=== PATIENT | female | born 2000 | race Caucasian/White ===

== ENCOUNTER 2024-01-30 07:20 | Day surgery (SDC) | payer OTHER, SELFPAY ==
[2024-01-30] VITALS (11 sets, daily range): BP systolic 77–129; BP diastolic 38–72; PULSE 80–120; RESP 16; TEMP 36.1–37.2; O2SAT 93–100
--- NOTE | 2024-01-30 07:30 | EX.ED.DYSGE1 ---
HPI History of Present Illness Chief Complaint: Abd Pain [facility] Medical History (Updated 01/30/24 @ 11:21 by Amanda GONZALEZ PA-C) Anxiety Home Medications ?Medication ?Instructions ?Recorded ?Last Taken ?Type alprazolam 0.5 mg tablet 0.5 mg PO BID 01/30/24 01/29/24 History venlafaxine 150 mg 150 mg PO DAILY 01/30/24 01/29/24 History capsule,extended release 24 hr Allergy/AdvReac Type Severity Reaction Status Date / Time No Known Allergies Allergy Verified 01/30/24 07:30 Social History Smoking Status: Never smoker EXAM Physical Exam Const Vital Signs: 01/30/24 07:26 01/30/24 09:25 01/30/24 11:15 Temperature 97.2 F L 97.4 F L Temperature Source Temporal Pulse Rate 96 98 102 H Respiratory Rate 16 16 16 Blood Pressure 129/70 H 113/72 110/62 Blood Pressure Mean 89 85 78 Pulse Ox 100 100 100 Oxygen Delivery Method Room Air Room Air MDM MDM MDM Narrative Medical decision making narrative: HISTORY OF PRESENT ILLNESS: 23 year old female presents with abdominal pain. Notes intermittent abdominal pain. Was treated with home remedies. Notes today is constant pain with no improvement. No severe pain. No vomiting. Last bowel movement 2 days ago. No melena hematochezia. Denies family or personal history of any abdominal issues. Notes history of anxiety and depression but otherwise takes no specific medicine for chronic medical diseases. Denies urinary complaints. Last period was 2 weeks ago. Denies vaginal bleeding or discharge. REVIEW OF SYSTEMS: All other systems reviewed and are negative except as noted in the history of present illness. At least 10 review of systems reviewed and are negative except as noted in history of present illness. PHYSICAL EXAM: Nursing triage notes reviewed, Vital signs reviewed Constitutional: please see mdm HENT: MMM Eyes: Pupils equal round and reactive to light, Extraocular muscles intact Neck: No stridor, no JVD, full neck ROM Lungs: Clear to auscultation, No wheezing or rales. No increased work of breathing, no conversational dyspnea, no accessory muscle use, no nasal flaring. No respiratory distress noted Heart: Regular rate and rhythm, No murmurs, No rubs and No gallops, 2+ distal pulses (radial, femoral, posterior tibial) in all extremities Abdomen: Soft, TTP in the right lower quadrant with guarding. No palpable pulsatile abdominal masses, no auscultated abdominal bruit : No CVAT Extremities: No edema Neuro: No focal neurological deficits, cranial nerves II through XII intact, 5/5 strength in all extremities. Intact sensation to light touch in all extremities, 2+ reflexes bilateral patella tendons. Normal gait. No ataxia. Skin: No rash or lesions noted MEDICAL DECISION MAKING: Chief Complaint: abdominal pain External records reviewed: no recent adVanced imaging of the abdomen Factors affecting care: none Social determinants of health:none History obtained from others: none Consults: General surgery (Dr. Potter) MDM Narrative: Patient was hemodynamically stable, afebrile and nontoxic-appearing. Diffuse tenderness along the abdomen particular the mid abdomen and right lower quadrant. I considered the following differential diagnosis: AAA, small bowel obstruction, abdominal perforation, appendicitis, pancreatitis, hepatobiliary pathology (acute cholecystitis), mesenteric ischemia, abnormalities such as pyelonephritis, nephrolithiasis I obtained a broad lab and imaging workup to further elucidate etiology of his complaints. I gave 1 L normal saline and Tylenol for show pain control as well as Zofran for nausea control. Awaiting test to expand patient pain control with NSAIDs ALL IMAGES (IF OBTAINED) HAVE BEEN PERSONALLY REVIEWED AND INTERPRETED BY MYSELF. CBC with leukocytosis suggestive of systemic inflammation, no anemia or thrombocytopenia CMP without evidence of acute kidney injury, significant electrolyte abnormality, anion gap, no evidence hepatobiliary pathology. Lipase is wnl indicating no pancreatic inflammation. CT scan shows acute appendicitis I consulted general surgery on-call who recommended admission to the operating room for definitive surgical care. Start the patient on Zofran. The patient and/or family, caregivers express understanding. The patient and/or family, caregivers agrees with the plan. Total critical care time today provided was at least 35 minutes. This excludes separately billable procedures. Critical care time (if documented) is secondary to the patient having high probability of clinically significant/life threatening deterioration in the patient's condition which required my urgent intervention. Shared decision making: I will have a discussion with the patient and or visitors regarding risk/benefits of further testing or admission. They will be made aware of of the risk/benefits inherent in this decision they will be given the opportunity to voice understanding. Impression: 1. Abdominal pain 2. Leukocytosis 3. Acute appendicitis Disposition: Admit to the OR Catrachito David DO This note was generated with [employer] dictation software. It may contain incorrect words, spelling, and punctuation that were not noted in review of the chart prior to signing. Lab Data Labs: Laboratory Results - last 24 hr 01/30/24 01/30/24 07:40 09:21 WBC 17.9 H RBC 4.80 Hgb 14.1 Hct 41.6 MCV 86.7 MCH 29.4 MCHC 33.9 RDW Std Deviation 39.0 RDW Coeff of Ray 12.1 Plt Count 214 MPV 10.1 Immature Gran % (Auto) 0.400 Neut % (Auto) 89.7 H Lymph % (Auto) 4.6 L [place] % (Auto) 5.1 Eos % (Auto) 0.1 Baso % (Auto) 0.1 Absolute Neuts (auto) 16.0 H Absolute Lymphs (auto) 0.82 L Nucleated RBC % 0 Sodium 134 L Potassium 3.6 Chloride 105 Carbon Dioxide 25.0 Anion Gap 4 L BUN 11 Creatinine 0.65 Est GFR (MDRD) Af Amer 144 Est GFR (MDRD) Non-Af 119 BUN/Creatinine Ratio 17.0 Glucose 108 H Calcium 8.9 Total Bilirubin 0.60 Direct Bilirubin 0.16 AST 15 ALT 20 Alkaline Phosphatase 63 Total Protein 7.0 Albumin 4.0 Globulin 3.0 Lipase 18 HCG, Quant < 1 Urine Color Yellow Urine Clarity Clear Urine pH 6.0 Ur Specific [place] 1.010 Urine Protein Negative Urine Glucose (UA) Normal Urine Ketones 15 H Urine Occult Blood Negative Urine Nitrite Negative Urine Bilirubin Negative Urine Urobilinogen Normal Ur Leukocyte Esterase 25 H Urine RBC 0 SEEN Urine WBC 0-5 SEEN Ur Squamous Epith Cells 0 SEEN Urine Bacteria 1+ Urine Mucus 0 SEEN Urine Test Negative Radiography Diagnostic Testing: Clinical Impression(s) from Imaging Studies Abdomen/Pelvis CT 01/30/24 08:49 IMPRESSION: Acute appendicitis. Electronically Signed: Svetlana Vasquez MD at 10:11 EDT , Discharge Plan Disposition Disposition: Acute Care Hospital [facility] Discharge Date/Time: 01/30/24 11:15
[2024-01-30 07:48] LABS: Absolute Lymphocyte Count 0.82 X10^3/uL (0.83-4.51); Basophil# 0.02 X10^3/uL; Basophil% 0.1 % (0-1); Eosinophil# 0.01 X10^3/uL; Eosinophils% 0.1 % (0-5); Hematocrit 41.6 % (37-47); Hemoglobin 14.1 g/dL (12.0-15.0); Lymphocyte # 0.82 X10^3/ul (0.83-4.51); Lymphocyte % 4.6 % (19-41); Mean Corp Hgb Conc 33.9 g/dL (32-36); Mean Corpuscular Hgb 29.4 pg (27.0-32.0); Mean Corpuscular Volume 86.7 fL (81-99); Mean Platelet Vol. 10.1 fl (6.2-12.0); Monocyte# 0.91 X10^3/uL; Monocyte% 5.1 % (0-10); NRBC Flagged by Analyzer 0 % (0-5); Neutrophil # 16.04 X10^3/uL (2.7-7.7); Neutrophil % 89.7 % (47-70); Platelet Count 214 K/mm3 (150-450); RBC Distribution Width CV 12.1 % (11.6-14.6); White Blood Count 17.9 K/mm3 (4.4-11.0)
[2024-01-30 08:05] LABS: AST(SGOT) 15 U/L (15-37); Alanine Aminotransfer ALT/SGPT 20 U/L (13-56); Alkaline Phosphatase 63 U/L (45-117); Anion Gap 4 (5-15); BUN 11 mg/dL (7-18); Bilirubin, Direct 0.16 mg/dL (0.00-0.30); Calcium,Total 8.9 mg/dL (8.5-10.1); Chloride 105 mmol/L (98-107); Creatinine, Serum 0.65 mg/dL (0.55-1.02); EST Glomerular Filtration Rate 119 mL/min (>60); Est Glom Filt Rate - Afr Amer 144 mL/min (>60); Glucose 108 mg/dL (74-106); Lipase 18 U/L (13-75); Potassium 3.6 mmol/L (3.5-5.1); Sodium Level 134 mmol/L (136-145)
[2024-01-30] MEDS: Ondansetron 4 MG/2 ML Vial IV (08:11)
[2024-01-30] MEDS: Acetaminophen 325 MG Tablet 650 MG PO ×2 (08:11→16:44)
[2024-01-30] MEDS: 0.9% Normal Saline (1000mL) 1,000 ML 999 ML IV (08:11)
--- NOTE | 2024-01-30 08:49 | CT_ITS ---
STUDY: CT ABDOMEN AND PELVIS WITH CONTRAST - URINARY TRACT REASON FOR EXAM: Female, 23 years old. Abdominal pain RADIATION DOSAGE (If Supplied By Facility): CTDIvol = ( 9.99 ) mGy, DLP = ( 472.79 ) mGycm TECHNIQUE: IV 100mL Isovue-300 was administered. Transaxial images were obtained from the dome of the diaphragm to the symphysis pubis subsequent to intravenous contrast administration. Multiplanar coronal and sagittal images were reformatted. The protocol utilizes one or more of the following dose reduction techniques: automated exposure control, adjustment of mA and/or kV according to patient size,and/or use of iterative reconstruction technique. COMPARISON: No relevant prior comparison study available FINDINGS: The visualized lung bases are unremarkable. The visualized portions of the heart are within normal limits. Normal liver. Normal gallbladder and extrahepatic biliary system. Normal spleen. Normal pancreas. Normal bilateral adrenal glands. Normal visualized stomach. Normal small intestine. Normal colon. The appendix is dilated measuring up to 8.4 mm. There are appendicularis within the appendix. There is appendiceal wall thickening. Normal abdominal aorta. No retroperitoneal adenopathy. Normal right kidney. Normal left kidney. Normal urinary bladder. Normal abdominal wall. Normal osseous structures. CT/Abdomen/Pelvis W IV Cont ONLY IMPRESSION: Acute appendicitis. Electronically Signed: Svetlana Vasquez MD at 10:11 EDT ,
[2024-01-30 09:22] LABS: hCG Titer Quant., Serum < 1 mIU/mL (1-3)
[2024-01-30 09:26] LABS: Mucous, Urine 0 SEEN /hpf (<or=2+); Red Blood Cells-Urine 0 SEEN /hpf (0-5); Squamous Epithelial Cells - UA 0 SEEN /hpf (5-10)
[2024-01-30 09:42] LABS: Color, Urine Yellow (Yellow); Glucose, Dipstick Normal (Normal); Ketone-Dipstick 15 mg/dl (Negative); Leukocyte Esterase-Dipstick 25 /ul (Negative); Nitrite-Dipstick Negative (Negative); Occult Blood-Urine Negative /ul (Negative); Protein-Dipstick Negative (Negative); Urine Bilirubin Dipstick Negative (Negative); Urine Clarity Clear (Clear); Urine Urobilinogen Normal (Normal)
[2024-01-30 09:43] LABS: Internal QC Validated? YES +Cl - CLEAR BKGD; Pregnancy, Urine Negative Negative
[2024-01-30 09:55] LABS: Bacteria 1+ /hpf (None Seen); White Blood Cells 0-5 SEEN /hpf (0-5)
--- NOTE | 2024-01-30 11:02 | HP.PCM_ITS ---
HPI - General General Date of Admission: 01/30/24 Date of Service: 01/30/24 HPI Narrative RAUL ROBERTS, is a 23 F who presents with acute onset of lower abdominal pain. She notes waking up around midnight with the abdominal pain. She denies nausea, vomiting, fever. She denies any viral illness preluding her current symptoms. She notes a history of constipation. She reveals she has a bowel movement everyday, however it is small amounts. She denies any interruption of her appetite. She denies previous abdominal surgeries. She denies any difficulty with urination. She notes her last menstrual cycle was 2 weeks ago. She denies any cardiac or pulmonary medical history. She notes history of anxiety and depression for which she is on medication for. She denies any blood thinners. CT scan of ab/pel demonstrated acute appendicitis with appendicularis within the appendix. WBC is 17.9 with left shift. UA with leukocyte esterase and urine bacteria positive. [facility] Medical History (Updated 01/30/24 @ 11:21 by Amanda GONZALEZ PA-C) Anxiety Home Medications ?Medication ?Instructions ?Recorded ?Last Taken ?Type alprazolam 0.5 mg tablet 0.5 mg PO BID 01/30/24 01/29/24 History venlafaxine 150 mg 150 mg PO DAILY 01/30/24 01/29/24 History capsule,extended release 24 hr Allergy/AdvReac Type Severity Reaction Status Date / Time No Known Allergies Allergy Verified 01/30/24 07:30 Social History Smoking Status: Never smoker ROS Constitutional Constitutional: Reports fatigue and malaise Eyes Eyes: Reports systems reviewed and no addt'l complaints, except as documented ENT HEENT: Reports systems reviewed and no addt'l complaints, except as documented Cardiovascular Cardiovascular: Reports systems reviewed and no addt'l complaints, except as documented Respiratory/Chest Respiratory/Chest: Reports systems reviewed and no addt'l complaints, except as documented Gastrointestinal Gastrointestinal: Reports systems reviewed and no addt'l complaints, except as documented Genitourinary Genitourinary: Reports systems reviewed and no addt'l complaints, except as documented Musculoskeletal Musculoskeletal: Reports systems reviewed and no addt'l complaints, except as documented Integumentary Integumentary: Reports systems reviewed and no addt'l complaints, except as documented Neurologic Neurologic: Reports systems reviewed and no addt'l complaints, except as documented Psychiatric Psychiatric: Reports systems reviewed and no addt'l complaints, except as documented Endocrine Endocrinology: Reports systems reviewed and no addt'l complaints, except as documented Hematologic/Lymphatic Hematologic/Lymphatic: Reports systems reviewed and no addt'l complaints, except as documented Allergic/Immunologic Allergic/Immunologic: Reports systems reviewed and no addt'l complaints, except as documented Vital Signs Vital Signs Vital Signs: 01/30/24 07:26 01/30/24 09:25 Temperature 97.2 F L Temperature Source Temporal Pulse Rate 96 98 Respiratory Rate 16 16 Blood Pressure 129/70 H 113/72 Blood Pressure Mean 89 85 Pulse Ox 100 100 Oxygen Delivery Method Room Air Room Air Physical Exam Const alert, oriented x3 and no apparent distress HEENT normocephalic and head/scalp atraumatic Eyes PERRL Neck full ROM Lymph Lymphatic: no lymphadenopathy noted Resp normal respiratory effort and clear to auscultation bilaterally Cardio regular rate and regular rhythm GI GI Narrative: Abdomen- soft, tenderness in the mid pelvic region, positive McBurney's sign, positive Rovsing's sign. Hypoactive bowel sounds. Palpation: guarding and rebound tenderness present no CVA tenderness Back/Spine no CVA tenderness Extremity normal to inspection Skin no rashes or lesions noted Neuro no focal motor deficits and no sensory deficits noted Psych mental status grossly normal Appearance: grossly normal Attitude: calm Mood & Affect: flat affect Results Lab / Micro Data 01/30/24 07:40 01/30/24 07:40 Labs: Laboratory Results - last 24 hr 01/30/24 07:40: WBC 17.9 H, RBC 4.80, Hgb 14.1, Hct 41.6, MCV 86.7, MCH 29.4, MCHC 33.9, RDW Std Deviation 39.0, RDW Coeff of Ray 12.1, Plt Count 214, MPV 10.1, Immature Gran % (Auto) 0.400, Neut % (Auto) 89.7 H, Lymph % (Auto) 4.6 L, [place] % (Auto) 5.1, Eos % (Auto) 0.1, Baso % (Auto) 0.1, Absolute Neuts (auto) 16.0 H, Absolute Lymphs (auto) 0.82 L, Nucleated RBC % 0, Sodium 134 L, Potassium 3.6, Chloride 105, Carbon Dioxide 25.0, Anion Gap 4 L, BUN 11, Creatinine 0.65, Est GFR (MDRD) Af Amer 144, Est GFR (MDRD) Non-Af 119, BUN/Creatinine Ratio 17.0, Glucose 108 H, Calcium 8.9, Total Bilirubin 0.60, Direct Bilirubin 0.16, AST 15, ALT 20, Alkaline Phosphatase 63, Total Protein 7.0, Albumin 4.0, Globulin 3.0, Lipase 18, HCG, Quant < 1 01/30/24 09:21: Urine Color Yellow, Urine Clarity Clear, Urine pH 6.0, Ur Specific [place] 1.010, Urine Protein Negative, Urine Glucose (UA) Normal, Urine Ketones 15 H, Urine Occult Blood Negative, Urine Nitrite Negative, Urine Bilirubin Negative, Urine Urobilinogen Normal, Ur Leukocyte Esterase 25 H, Urine RBC 0 SEEN, Urine WBC 0-5 SEEN, Ur Squamous Epith Cells 0 SEEN, Urine Bacteria 1+, Urine Mucus 0 SEEN, Urine Test Negative Imaging Radiology Impression Abdomen/Pelvis CT 01/30/24 08:49 IMPRESSION: Acute appendicitis. Electronically Signed: Svetlana Vasquez MD at 10:11 EDT , Assessment & Plan Assessment/Plan (1) Acute appendicitis: QUALIFIERS: Acute appendicitis type: with generalized peritonitis Appendicitis gangrene presence: unspecified whether gangrene present A ppendicitis perforation presence: without perforation Appendicitis abscess presence: without abscess Qualified Code(s): K35.200 - Acute appendicitis with generalized peritonitis, without perforation or abscess PLAN: I am seeing this patient in conjunction with Dr. Potter. Patient with acute onset of lower abdominal pain which progressively became worse prompting an ED visit. CYT scan of the ab/pel demonstrated acute appendicitis with appendicolith, increased WBC with left shift. Dr. Potter will plan to perform a laparoscopic appendectomy with possible small bowel resection. Procedure details, risks and benefits have been explained. Patient and her have had the opportunity to ask and have questions answered. Plan to start patient on IV antibiotics, IV fluids, admit for observation. Proceed with proposed procedure at the timing of the operating room. Patient and agree with the proposed plan. Thank you for allowing us to participate in this patient's care. Charges/Coding Visit Charges OBSV E&M: 84271 Observ/hosp same date L2
[2024-01-30] MEDS: 0.9% Normal Saline (1000mL) 1,000 ML 15 ML IV (11:35)
[2024-01-30] MEDS: Piperacil/Tazobactam 3.375 GM in 0.9% Normal Saline (50mL MB+) 50 ML IV (11:53)
--- NOTE | 2024-01-30 14:20 | APP_PTH ---
PATIENT: RAUL ROBERTS LOC: [facility] [place] U#:[id number] AGE/SX: 23/F ROOM: RE01/30/[address]: Dr. Angélica Potter MD : 2000 BED: DIS: 01/30/2024 SPEC #: [id number] RECD: 01/30/24 16:20 STATUS: RAMÓN JEREMÍAS #: [id number] ABISAI: 01/30/24 14:[address]: Angélica Potter DEPT: SURGICAL PATHOLOGY RECD BY: Cinthya Liu ENTERED: 01/31/24 08:39 SP TYPE: APPENDIX OT DR: No Primary Care Phys Tissues: Appendix, NOS Procedures: Surgery Specimen Level III HEADER OPERATION: Laparoscopic, appendectomy PRE-OP DIAGNOSIS: Acute appendicitis TISSUE SUBMITTED: Appendix MICROSCOPIC DIAGNOSIS Appendix, appendectomy: Acute appendicitis and periappendicitis. LARS/ 02/01/2024 MICROSCOPIC DESCRIPTION Slides are reviewed. GROSS DESCRIPTION Received in fixative is one container labeled with the patient's name and designated appendix. The specimen consists of C-shaped appendix measuring 7.0 cm in length and up to 1.2 cm in diameter. The serosa is covered with warner purulent exudate. No obvious perforation is identified. The lumen is filled with fecal material. No fecalith is identified. Heating Repair Technician sections are submitted in one cassette. / SJ: 01/31/24 TC:2 CPT: 33674
--- NOTE | 2024-01-30 15:22 | PCM.OPRPT ---
Report of Operation Date of Procedure: 01/30/24 Pre-Operative Diagnosis: Acute appendicitis Post-Operative Diagnosis: Same Surgery/Procedure Performed:: Laparoscopic appendectomy Surgeon: Angélica Potter Type of Anesthesia: General/Supplemental Anesthesiologist: Tino Ewing Special Medications: Zosyn 3.375 g IV given x 1 in the ER for acute appendicitis Specimen's removed: Appendix Estimated Blood Loss (mL): < 10 cc Description of Procedure: Indications: 23-year-old female presented to the ER with new right lower quadrant pain yesterday night. On workup she was found to have acute appendicitis on CT and a leukocytosis of 17.9. Patient was started on antibiotics in the ER for acute appendicitis-Zosyn 3.375 g IV x 1 Description of the procedure: The patient was placed on operating table in supine position. General anesthesia was induced. A timeout was completed verifying correct patient, procedure, position and special equipment prior to beginning procedure. Abdomen was prepped and draped in usual sterile fashion. Incision was made in the natural skin line above the umbilicus with a 15 blade scalpel. The fascia was elevated and incised. Entry into the peritoneum was confirmed visually and no bowel was noted in the vicinity of the incision. The Newman trocar was placed under direct vision. Abdomen insufflated with a pressure of 12-15 mmHg. Patient tolerated insertion well. The scope was inserted and the abdomen inspected. No injuries from initial trocar placement were noted. Minimal amount of fluid was seen in the right lower quadrant. An direct visualization 2 -5 mm trocars were placed one above the symphysis pubis and below the hairline and one in the left lower quadrant lateral to the rectus muscle. Care is taken to avoid injury to the bladder and inferior epigastric vessels. The table was placed in Trendelenburg position with the right side elevated. The appendix was grasped with atraumatic grasper and elevated. It was noted to be inflamed. A window was developed in the mesoappendix at the point between the base of the appendix and the cecum. An endoscopic 45 mm linear cutting stapler blue load was then used to divide and staple the base of the appendix. Enseal was used to divide the mesoappendix. The appendix was withdrawn into the Newman trocar after being placed endoscopically retrieval bag. Appendix was sent to pathology. The appendiceal stump was then irrigated and hemostasis was assured. Fluid was suctioned no other pathology was identified. Secondary trochars were removed under direct visualization. No bleeding was noted trocar sites. The laparoscope withdrawn and the umbilical trocar removed. The abdomen was allowed to collapse. Local anesthesia of 20 mL of 0.5% Marcaine was used at the incision sites. The umbilical trocar site was closed with the [id number] 0 Vicryl suture. The skin was closed using sutures of 4-0 Monocryl and Steri-Strips. The patient was extubated. The patient tolerated the procedure well and was taken to the postanesthesia care unit in satisfactory condition. Complications none
--- NOTE | 2024-01-30 15:25 | DCINST_ITS ---
Discharge Instructions Diet Discharge Diet: Light diet - advance as tolerated Activity Discharge Activity: May Not Drive (while taking narcotic pain medications.) May shower in (days): 1 Lifting Restrictions: no lifting >20 lbs x 2 wks, no strenuous exercise for 4 wks Additional Activity Instructions:: No buggy rides as increased risk of hernia when tensing up the abdomen if a bumpy ride x 3 weeks Dressing / Incision Call your doctor if your incision/area has: Continuous Slow Oozing, Sudden Increased Bleeding, Increased Pain/ Swelling, Increased Redness, Foul Smelling Discharge and Swelling at the incision site Call your doctor if you observe: Fever of 101 or Higher Remove Dressing in: 2 days Cleanse incision/area with: Soap & Water Additional Dressing/Incision Instructions:: Steri-Strips will fall off in 7 to 10 days, if they do not fall off okay to remove after 10 days. Follow Up Care Please Follow Up With: Angélica Potter MD When: Call the office for a follow-up appointment 2 weeks; after 5 PM and on the weekends call [phone] with any concerns. Test Results: Test results from this visit will be discussed in further detail at your follow- up appointment, if applicable. Discharge Plan Admission Attending Provider: Angélica Potter Primary Care Provider: Lacie Hess Primary Instructions Print Language: Egyptian Discharge Orders/Prescriptions Prescriptions: New oxycodone-acetaminophen 5-325 mg tablet 1 - 2 tab PO Q6H PRN (Reason: pain) 3 Days Qty: 14 0RF Continued venlafaxine 150 mg capsule,extended release 24hr 150 mg PO DAILY alprazolam 0.5 mg tablet 0.5 mg PO BID Referrals / Follow Up: Care PhysicianLacie Primary [Primary Care Provider] - Disposition Disposition (needs filled in before D/C Order can be placed): Home, Self Care
[2024-01-30] MEDS: Lactated Ringers 1,000 ML 15 ML IV (15:30)
== END 2024-01-30 18:46 | disposition home or self-care (01) ==
LOC: ED 08:18 → SDC 10:46 → ACINP 10:47
PROVIDERS: Emergency Provider Emergency Medicine; Visit Provider Surgery
PROC: 0DTJ4ZZ Resection of Appendix, Percutaneous Endoscopic Approach (ICD-10-PCS; CPT 44970; principal; 2024-01-30 14:00)
DX: K35.200 Acute appendicitis with generalized peritonitis, without perforation or abscess (principal); F41.9 Anxiety disorder, unspecified
CPT/HCPCS: 44970; 00840; 74177; 80048; 80076; 81001; 81025; 83690; 84702; 85025; 88304; 99285; J7030; J7120; Q9967; A4216; C1760; J2405